=== PATIENT | female | born 1995 | race Caucasian/White ===

== ENCOUNTER 2018-04-09 07:20 | Emergency (ER) | payer OTHER, SELFPAY ==
[2018-04-09] MEDS ORDERED: Lidocaine 1% w/Epinephrine 1:100K 20 ML VIAL ONE (07:44)
[2018-04-09] MEDS ORDERED: Acetaminophen 500 MG TAB ONE (08:26)
[2018-04-09] MEDS ORDERED: Bacitracin Zinc 1 Packet ONE (08:48)
== END 2018-04-09 08:48 | disposition home or self-care (01) ==
LOC: ERS 07:20
DX: S61.411A Laceration without foreign body of right hand, initial encounter (principal); W26.0XXA Contact with knife, initial encounter
CPT/HCPCS: 12002; J2001